=== PATIENT | female | born 1995 | race Caucasian/White ===

== ENCOUNTER 2018-06-23 11:03 | Inpatient (IN) ==
[2018-06-23] MEDS ORDERED: ONDANSETRON 4 MG/2 ML VIAL IV PRN (13:22)
[2018-06-23] MEDS ORDERED: MEPERIDINE 50 MG/1 ML VIAL IV PRN (13:22)
[2018-06-23] MEDS ORDERED: BUTORPHANOL 2 MG/ML VIAL IV PRN (13:22)
[2018-06-23] MEDS ORDERED: OXYTOCIN/LR 20 UNIT/1,000 ML BAG IV SCH (13:30)
[2018-06-23] MEDS: LACTATED RINGERS 1,000 ML IV SCH ×2 (13:40→23:58)
[2018-06-23 13:44] LABS: Basophils % 0.3 % (0.0-0.8); Eosinophils # 0.2 10*3/uL (0.0-0.87); Eosinophils % 2.1 % (0.00-10.9); Hematocrit 33.9 VOL% (35.7-47.0); Hemoglobin 11.1 GM/DL (12.0-16.0); Immature Granulocytes % 0.6 %; Immature Granulocytes Absolute 0.06 #; Lymphocytes # 2.5 10*3/uL (1.4-4.0); Lymphocytes % 23.5 % (21.3-54.2); Mean Corpuscular HGB Conc 32.7 GM/DL (32-36); Mean Corpuscular Volume 90.4 FL (87-102); Mean Platelet Volume 9.8 FL (9.6-12.0); Monocytes % 6.7 % (1.7-12.7); Neutrophils % 66.8 % (38.7-73.9); Platelet Count 295 T/CUMM (130-400); Red Blood Count 3.75 MC/CUMM (3.8-5.5); Red Cell Distribution Width 12.7 % (9.3-17.3); White Blood Count 10.5 T/CUMM (4-12)
[2018-06-23 14:08] LABS: Albumin 2.9 G/DL (3.4-5.0); Bilirubin,Total 0.8 MG/DL (0.2-1.0); Calcium 9.2 MG/DL (8.5-10.1); Total Protein 7.3 G/DL (6.4-8.3)
[2018-06-24] MEDS ORDERED: LIDOCAINE 1% 50 ML VIAL ONE ×2 (01:17→11:40)
[2018-06-24] MEDS ORDERED: miSOPROStol 200 MCG TABLET ONE (01:17)
[2018-06-24] MEDS ORDERED: TRANEXAMIC ACID 1,000 MG/10 ML VIAL ONE (01:18)
[2018-06-24] MEDS ORDERED: METHYLERGONOVINE 0.2 MG/1 ML AMP ONE (01:18)
[2018-06-24] MEDS ORDERED: CARBOPROST TROMETHAMINE 250 MCG/ML AMP IM ONE (01:18)
[2018-06-24] MEDS ORDERED: CITRIC ACID/SODIUM CITRATE 30 ML UDCUP PO ONE (07:33)
[2018-06-24] MEDS ORDERED: ePHEDrine 50 MG/ML AMP IV PRN (07:33)
[2018-06-24] MEDS ORDERED: NALOXONE 0.4 MG/ML VIAL IV PRN (07:33)
[2018-06-24] MEDS ORDERED: PROMETHAZINE 25 MG/1 ML VIAL IM ONE (07:33)
[2018-06-24] MEDS ORDERED: FAMOTIDINE 20 MG/2 ML VIAL IV ONE (07:33)
[2018-06-24] MEDS ORDERED: hydrOXYzine HCL 25 MG/1 ML VIAL IM PRN (07:33)
[2018-06-24] MEDS ORDERED: diphenhydrAMINE 50 MG/1 ML VIAL IV PRN (07:33)
[2018-06-24] MEDS ORDERED: fentaNYL 2 MCG/ROPIV 0.2% EPID 100 ML EPIDURAL SCH (08:00)
[2018-06-24] MEDS: LACTATED RINGERS 1,000 ML IV SCH (09:40)
[2018-06-24 09:49] LABS: Apearance,Urine CLEAR (Clear); Bilirubin,Urine Negative (Negative); Blood, Urine Small mg/dL (Negative); Glucose,Urine (UA) Negative (Negative); Ketones,Urine 80 mg/dL (Negative); Mucus,Urine Occasional /LPF (Occasional); Nitrite,Urine Negative (Negative); Protein,Urine Negative; RBC,Urine <1 /HPF (0-4); Squamous Epithelial Cell,Urine Occasional /HPF (0-10); Urine Color Yellow (Yellow); Urine Urobilinogen < 2.0 EU/DL (0.2-1.0)
[2018-06-24] MEDS ORDERED: WITCH HAZEL PADS 100/JAR TOP PRN (12:14)
[2018-06-24] MEDS ORDERED: DIPH/TET/ACEL PERT BOOSTER VACCINE 0.5 ML VIAL IM ONE (12:14)
[2018-06-24] MEDS ORDERED: OXYTOCIN/LR 20 UNIT/1,000 ML BAG IV ONE (12:14)
[2018-06-24] MEDS ORDERED: RHO(D) IMMUNE GLOBULIN 300 MCG SYRINGE IM ONE (12:14)
[2018-06-24] MEDS ORDERED: oxyCODONE/ACETAMINOPHEN 5-325 MG TABLET PO PRN ×2 (12:14)
[2018-06-24] MEDS ORDERED: HYDROCORTISONE 2.5% RECTAL CREAM 30 GM TUBE TOP PRN (12:14)
[2018-06-24] MEDS ORDERED: ACETAMINOPHEN 325 MG TABLET PO PRN (12:14)
[2018-06-24] MEDS ORDERED: BISACODYL 10 MG SUPP RECTAL PRN (12:14)
[2018-06-24] MEDS ORDERED: ONDANSETRON 4 MG/2 ML VIAL IV PRN (12:14)
[2018-06-24] MEDS ORDERED: MEASLES/MUMPS/RUBELLA VACCINE 0.5 ML VIAL SUBCUT ONE (12:14)
[2018-06-24] MEDS ORDERED: BENZOCAINE 20%/MENTHOL 0.5% SPRAY 56 GM CAN TOP PRN (12:14)
[2018-06-24] MEDS ORDERED: LANOLIN 50% CREAM 0.3 OZ TUBE TOP PRN (12:14)
[2018-06-24] MEDS: IBUPROFEN 800 MG TABLET PO PRN ×2 (14:00→21:38)
[2018-06-24] MEDS: DOCUSATE SODIUM 100 MG CAPSULE PO SCH (21:32)
[2018-06-25 06:15] LABS: Basophils % 0.3 % (0.0-0.8); Eosinophils # 0.3 10*3/uL (0.0-0.87); Eosinophils % 3.3 % (0.00-10.9); Hematocrit 31.8 VOL% (35.7-47.0); Hemoglobin 10.2 GM/DL (12.0-16.0); Immature Granulocytes % 0.4 %; Immature Granulocytes Absolute 0.04 #; Lymphocytes # 2.7 10*3/uL (1.4-4.0); Lymphocytes % 26.6 % (21.3-54.2); Mean Corpuscular HGB Conc 32.1 GM/DL (32-36); Mean Corpuscular Volume 91.1 FL (87-102); Mean Platelet Volume 10.1 FL (9.6-12.0); Monocytes % 9.6 % (1.7-12.7); Neutrophils % 59.8 % (38.7-73.9); Platelet Count 258 T/CUMM (130-400); Red Blood Count 3.49 MC/CUMM (3.8-5.5); Red Cell Distribution Width 12.9 % (9.3-17.3)
[2018-06-25] MEDS: DOCUSATE SODIUM 100 MG CAPSULE PO SCH ×2 (10:02→21:13)
[2018-06-25] MEDS: IBUPROFEN 800 MG TABLET PO PRN ×2 (11:09→21:21)
[2018-06-26 07:30] VITALS: BP 117/72
[2018-06-26] MEDS: DOCUSATE SODIUM 100 MG CAPSULE PO SCH (09:32)
[2018-06-26] MEDS: IBUPROFEN 800 MG TABLET PO PRN (09:33)
== END 2018-06-26 11:52 | disposition home or self-care (01) | DRG 807 ==
LOC: N.LDOUT 11:03 → N.LD 11:04 → N.OB 06-24 14:57
PROVIDERS: ADMIT Obstetrics & Gynecology; ATTEND Obstetrics & Gynecology